=== PATIENT | female | born 1945 | race Hispanic/Latino ===

== ENCOUNTER → 2017-07-30 | Day surgery (SDC) | payer OTHER ==
[~2017-07-30] MED LIST: FENTANYL CITRATE/PF 100MCG/2 ML INJ ONE; LIDOCAINE HCL 2% LOCAL INJ 5 ML SDV VIAL INJ ONE; MIDAZOLAM HCL 2 MG/2 ML VIAL ONE; NEXIUM40 MG PO; PROPOFOL IV EMULSION 10 MG/ML 50 ML VIAL ONE
--- OUTSIDE RECORDS SUMMARY | 2017-07-30 06:26 | XMS REPORT ---
Author Organization Unknown Address [address] [place] [address] Phone [phone] Care Team Providers Care Grading Clerk Name Role Phone ZANDRA PAUL MD 124 [phone] Allergies Code Code System Name Reaction Severity Status Onset 97695 RxNorm Gabapentin Dizziness Active 17635 RxNorm Tramadol Hallucinations Active Medications Name Status Start Date Stop Date esomeprazole magnesium 40 mg capsule,delayed release Active Not available ferrous sulfate 325 mg (65 mg iron) tablet Take 1 tablet every day by oral route as directed for 90 days. Active Not available gabapentin 100 mg capsule Take 3 capsules every day by oral route as directed for 90 days. Completed 05/22/2016 gabapentin 300 mg capsule Take 1 capsule 3 times a day by oral route for 90 days. Completed 2017 lisinopril 20 mg-hydrochlorothiazide 25 mg tablet Active Not available meloxicam 15 mg tablet Take 1 tablet every day by oral route as needed for 30 days. Active Not available methylprednisolone 4 mg tablets in a dose pack Completed 05/17/2017 naproxen 500 mg tablet Completed 05/17/2017 tramadol 50 mg tablet Completed 05/03/2017 Problems Name Status Onset Date Source Hypertensive Disorder Active 05/08/2016 Gastroesophageal Reflux Disease Active 05/08/2016 Lumbar Spondylosis with Myelopathy Active 05/08/2016 History of Malignant Neoplasm of Colon Active 05/08/2016 History of Malignant Neoplasm of Cervix Active 05/08/2016 Mild Recurrent Major Depression Active 05/12/2016 Hereditary and Idiopathic Peripheral Neuropathy Active 05/12/2016 History of Total Knee Arthroplasty Active 05/12/2016 Pain in Right Knee Active 05/12/2016 Procedures Date Name Performed by 04/01/2012 Knee Surgery Notes: Right Information not available 10/30/2008 Knee Surgery Notes: Right Information not available 07/30/2008 Knee Arthroscopy/surgery Notes: Left Information not available 05/30/2008 Knee Arthroscopy/surgery Notes: RT Information not available 04/01/2003 Cancer Surgery Information not available 04/01/1993 Cancer Surgery Information not available 05/08/2016 Electrocardiogram [facility] [address] [facility] [address] [place] [id number] (Work Place) 05/08/2016 MAMMO, Screening, Bilateral [facility]) [address] [place] [address] (Work Place) 05/08/2016 Bone Density [facility]) [address] [place] [address] (Work Place) 03/04/2017 MAMMO, Screening, Bilateral [facility]) [address] [place] [address] (Work Place) 04/26/2017 Bone Density [facility]) [address] [place] [address] (Work Place) 05/03/2017 MAMMO, Screening, Digital, Bilateral [facility]) [address] [place] [address] (Work Place) 05/03/2017 Bone Density [facility]) [address] [place] [address] (Work Place) Notes: CERVICAL Ca - treated with LEEP/LOOP and radiation therpay COLON Ca - treated with Chemotherapy (last colonsocopy 2012) Lab Results Date Name Specimen Result Interpretation Description Value Range Status Address 05/03/2017 CMP, Serum or Plasma High Glucose 115 mg/dL 65-99 mg/ dL Final [facility]: [address] Normal Urea Nitrogen (BUN) 18 mg/dL 7-25 mg/dL Final [facility]: [address] High Creatinine 0.95 mg/dL 0.60-0.93 mg/dL Final [facility]: [address] Low eGFR Non-afr. Afghan 59 mL/min/1.73m2 > or=60 mL/min/ 1.73m2 Final [facility]: [address] Normal eGFR 69 mL/min/1.73m2 > or=60 mL/min/ 1.73m2 Final [facility]: [address] [place] [address] Normal BUN/creatinine Ratio 19 (calc) 6-22 (calc) Final [facility]: [address] [facility] Sodium 140 mmol/L 135-146 mmol/L Final [facility]: [address] Normal Potassium 4.8 mmol/L 3.5-5.3 mmol/L Final [facility]: [address] [facility] Normal Chloride 100 mmol/L 98-110 mmol/L Final [facility]: [address] Normal Carbon Dioxide 28 mmol/L 20-31 mmol/L Final [facility]: [address] Normal Calcium 9.8 mg/dL 8.6-10.4 mg/dL Final [facility]: [address] Normal Protein, Total 8.1 g/dL 6.1-8.1 g/dL Final [facility]: [address] Normal Albumin 3.9 g/dL 3.6-5.1 g/dL Final [facility]: [address] High Globulin 4.2 g/dL (calc) 1.9-3.7 g/dL (calc) Final [facility]: [address] Low Albumin/globulin Ratio 0.9 (calc) 1.0-2.5 (calc) Final [facility]: [address] Normal Bilirubin, Total 0.5 mg/dL 0.2-1.2 mg/dL Final [facility]: [address] [place] [address] Normal Alkaline Phosphatase 85 U/L 33-130 U/L Final [facility]: [address] Normal Ast 17 U/L 10-35 U/L Final [facility]: [address] Normal Alt 10 U/L 6-29 U/L Final [facility]: [address] [facility] 05/03/2017 Lipid Panel, Serum Normal Cholesterol, Total 145 mg/dL <200 mg/dL Final [facility]: [address] Low HDL Cholesterol 34 mg/dL >50 mg/dL Final [facility]: [address] [place] Normal Triglycerides 127 mg/dL <150 mg/dL Final [facility]: [address] [place] Normal LDL-cholesterol 89 mg/dL (calc) Final [facility]: [address] [place] Normal Chol/hdlc Ratio 4.3 (calc) <5.0 (calc) Final [facility]: [address] [place] Normal Non HDL Cholesterol 111 mg/dL (calc) <130 mg/dL (calc) Final [facility]: [address] [facility] 05/03/2017 TSH, Serum or Plasma Normal Tsh 2.37 mIU/L 0.40-4.50 mIU/L Final [facility]: [address] [facility] 05/03/2017 CBC W/ Auto Diff Normal White Blood Cell Count 8.4 thousand/uL 3.8-10.8 thousand/uL Final [facility]: [address] [place] [address] Normal Red Blood Cell Count 4.07 million/uL 3.80-5.10 million/ uL Final [facility]: [address] [place] Low Hemoglobin 10.3 g/dL 11.7-15.5 g/dL Final [facility]: [address] [place] Low Hematocrit 32.5 % 35.0-45.0 % Final [facility]: [address] [place] Low Mcv 79.9 fL 80.0-100.0 fL Final [facility]: [address] [facility] Low Mch 25.3 pg 27.0-33.0 pg Final [facility]: [address] [place] Low Mchc 31.7 g/dL 32.0-36.0 g/dL Final [facility]: [address] [place] High Rdw 15.4 % 11.0-15.0 % Final [facility]: [address] [place] High Platelet Count 417 thousand/uL 140-400 thousand/uL Final [facility]: [address] [facility] Normal Mpv 11.4 fL 7.5-12.5 fL Final [facility]: [address] Castillo, Jose M Normal Absolute Neutrophils 6544 cells/uL 7013-6494 cells/uL Final [facility]: [address] Cast[address], [place] Normal Absolute Lymphocytes 1243 cells/uL 850-3900 cells/uL Final [facility]: [address] Castillo, [place] Normal Absolute Monocytes 454 cells/uL 200-950 cells/uL Final [facility]: [address]illo, [place] Normal Absolute Eosinophils 92 cells/uL 15-500 cells/uL Final [facility]: [address]illo, [place] Normal Absolute Basophils 67 cells/uL 0-200 cells/uL Final [facility]: [address], [place] Normal Neutrophils 77.9 % Final [facility]: [address], [place] Normal Lymphocytes 14.8 % Final [facility]: [address], [place] Normal Monocytes 5.4 % Final [facility]: [address], [place] Normal Eosinophils 1.1 % Final [facility]: [address], [place] Normal Basophils 0.8 % Final [facility]: [address], [place] 05/09/2016 Lipid Panel, Serum Normal Cholesterol, Total 145 mg/dL 125-200 mg/dL Final [facility]: [address] [facility], [place] Low HDL Cholesterol 33 mg/dL > or=46 mg/dL Final [facility]: [address] [facility] [place] Normal Triglycerides 125 mg/dL <150 mg/dL Final [facility]: [address] [facility], [place] Normal LDL-cholesterol 87 mg/dL (calc) <130 mg/dL (calc) Final [facility]: [address] [facility], [place] Normal Chol/hdlc Ratio 4.4 (calc) < or=5.0 (calc) Final [facility]: [address] [facility], [place] Normal Non HDL Cholesterol 112 mg/dL (calc) Final [facility]: [address] [place] bust[place]os 05/09/2016 CMP, Serum or Plasma Normal Glucose 89 mg/dL 65-99 mg/ dL Final [facility]: [address] [facility], [place] Normal Urea Nitrogen (BUN) 21 mg/dL 7-25 mg/dL Final [facility]: [address] [facility], [place] High Creatinine 1.10 mg/dL 0.60-0.93 mg/dL Final [facility]: [address] [facility] [place] Low eGFR Non-afr. Afghan 50 mL/min/1.73m2 > or=60 mL/min/ 1.73m2 Final [facility]: [address] [facility], [place] Low eGFR 58 mL/min/1.73m2 > or=60 mL/min/ 1.73m2 Final [facility]: [address] [facility], [place] Normal BUN/creatinine Ratio 19 (calc) 6-22 (calc) Final [facility]: [address] [facility], [place] Normal Sodium 139 mmol/L 135-146 mmol/L Final [facility]: [address] [facility], [place] Normal Potassium 4.1 mmol/L 3.5-5.3 mmol/L Final [facility]: [address] [facility], [place] Normal Chloride 99 mmol/L 98-110 mmol/L Final [facility]: [address] [facility], [place] Normal Carbon Dioxide 28 mmol/L 20-31 mmol/L [facility]: [address] [facility], [place] Normal Calcium 9.5 mg/dL 8.6-10.4 mg/dL Final [facility]: [address] [facility], [place] Normal Protein, Total 7.8 g/dL 6.1-8.1 g/dL [facility]: [address] [facility], [place] Normal Albumin 3.9 g/dL 3.6-5.1 g/dL Final [facility]: [address] [facility], [place] High Globulin 3.9 g/dL (calc) 1.9-3.7 g/dL (calc) [facility]: [address] [facility], [place] Normal Albumin/globulin Ratio 1.0 (calc) 1.0-2.5 (calc) Final [facility]: [address], [place] Normal Bilirubin, Total 0.7 mg/dL 0.2-1.2 mg/dL Final [facility]: [address], [place] Normal Alkaline Phosphatase 85 U/L 33-130 U/L Final [facility]: [address], [place] Normal Ast 17 U/L 10-35 U/L Final [facility]: [address] [facility], [place] Normal Alt 7 U/L 6-29 U/L Final [facility]: [address], [place] 05/09/2016 CBC W/ Manual Diff Normal White Blood Cell Count 8.9 thousand/uL 3.8-10.8 thousand/uL Final [facility]: [address] [facility], [place] Normal Red Blood Cell Count 3.89 million/uL 3.80-5.10 million/ uL Final [facility]: [address] [facility], [place] Low Hemoglobin 10.7 g/dL 11.7-15.5 g/dL Final [facility]: [address] [facility] [place] Low Hematocrit 32.9 % 35.0-45.0 % Final [facility]: 70 [facility], [place] Normal Mcv 84.6 fL 80.0-100.0 fL Final [facility]: 70 [facility], [place] Normal Mch 27.5 pg 27.0-33.0 pg Final [facility]: [address] [facility], [place] Normal Mchc 32.5 g/dL 32.0-36.0 g/dL Final [facility]: [address] [facility], [place] High Rdw 17.2 % 11.0-15.0 % Final [facility]: [address], [place] Normal Platelet Count 284 thousand/uL 140-400 thousand/uL Final [facility]: [address], [place] Normal Mpv 9.7 fL 7.5-12.5 fL Final [facility]: [address], [place] Normal Absolute Neutrophils 4717 cells/uL 7684-8468 cells/uL Final [facility]: [address], [place] Normal Absolute Band Neutrophils 534 cells/uL 0-750 cells/uL Final [facility]: [address], [place] Normal Absolute Lymphocytes 3204 cells/uL 850-3900 cells/uL Final [facility]: [address], [place] Normal Absolute Monocytes 267 cells/uL 200-950 cells/uL Final [facility]: [address], [place] Normal Absolute Eosinophils 178 cells/uL 15-500 cells/uL Final [facility]: [address], [place] Normal Absolute Basophils 18 cells/uL 0-200 cells/uL Final [facility]: [address], [place] Normal Neutrophils 53 % Final [facility]: [address], [place] Normal Band Neutrophils 6 % Final [facility]: [address], [place] Normal Lymphocytes 36 % Final [facility]: [facility] [address], [place] Normal Monocytes 3 % Final [facility] : [facility] [address], [place] Normal Eosinophils 2 % Final [facility]: [address] [place], [place] [address]t vd, [place] Comment(s) Final [facility]: [address] [place] [address], [place] 05/09/2016 T4, Total, Serum Normal T4 (Thyroxine), Total 8.6 mcg/ dL 4.5-12.0 mcg/dL Final [facility]: [address] [facility], [place] 05/09/2016 TSH, Serum or Plasma Normal Tsh 2.82 mIU/L 0.40-4.50 mIU/L Final [facility]: [address] [place] [address], [place] Electrocardiogram Rate & Rhythm [facility]: [address] [facility] [address], [place] Qrs [facility]: [address] [address], [place] Interval [facility]: [address] [address], [place] QRS Duration [facility]: [address] [address], [place] QT Interval [facility]: [address] [facility] [address], [place] Past Encounters 05/17/2017 Pain in Right Knee; Anemia Heron Jeronimo MD: [address] [address], [place] [address], Ph. 05/03/2017 Adult Health Examination; Pain in Right Knee; Hypertensive Disorder; Gastroesophageal Reflux Disease; Advance Directive Discussed with Patient; Depression Screening; Body Mass Index 20-24 - Normal; History of Malignant Neoplasm of Colon; Screening Mammography; Postmenopausal State Heron Jeronimo MD: [address] [facility], [address] [address], Ph. 04/15/2017 Influenza Vaccination Dwayne Leigh MD: [address] [facility], [facility] [address] [address], Ph. 05/22/2016 Hypertensive Disorder; History of Total Knee Arthroplasty; Hereditary and Idiopathic Peripheral Neuropathy; Gastroesophageal Reflux Disease; Pain in Right Knee Dwayne Leigh MD: [address] [facility], [facility] [address] [address], Ph. 05/08/2016 Adult Health Examination; Hypertensive Disorder; Hereditary and Idiopathic Peripheral Neuropathy; Mild Recurrent Major Depression; Gastroesophageal Reflux Disease; Pain in Right Knee; Lumbar Spondylosis with Myelopathy; History of Total Knee Arthroplasty; Body Mass Index 20-24 - Normal; Advance Directive Discussed with Patient; Screening for Malignant Neoplasm of Breast; Screening for Malignant Neoplasm of Colon; Screening for Osteoporosis; History of Malignant Neoplasm of Colon; Immunization Dwayne Leigh MD: [address] [place] [address], [address] [address], Ph. Social History Smoking Status Never Smoker Vaccine List Vaccine Type influenza, high dose seasonal 04/15/20170.5 mL influenza, injectable, quadrivalent 05/08/20160.5 mL pneumococcal polysaccharide PPV23 05/08/20160.5 mL zoster 04/01/2009 Plan of Care Patient Instructions Screening Recommendations 1. Vaccines Pneumococcal: discussed today and information sent with patient in their [employer] health folder Influenza: discussed today and information sent with patient in their [employer] health folder Shingles: discussed today and information sent with patient in their [employer] health folder Tetanus: discussed today and information sent with patient in their [employer] health folder 2. Mammography Screening: discussed today and information sent with patient in their [employer] health folder 3. Colorectal cancer Screening Colonoscopy: discussed today and information sent with patient in their [employer] health folder Fecal Occult Blood: discussed today and information sent with patient in their [employer] health folder 4. Bone Mass Measurement: discussed today 5. Pap test / Pelvic Exam Screening: discussed today 6. Eye Exam Screening: discussed today 7. Cholesterol Screening: discussed today 8. Diabetes Screening: discussed today It was good to see you in the office today for your Medicare Annual Wellness Visit. You have been provided some information on healthy nutrition, including a diet rich in fruits and vegetables, minimizing simple carbohydrates, salt, and saturated fats. I want to encourage regular cardiovascular exercise such as walking at least 30 minutes daily, 5 times per week. Please remember to schedule any preventive health measures that we talked about today. You have also been provided education on fall prevention and community- based lifestyle interventions to help reduce health risks and promote healthy living in your [employer] folder. It was good to see you in the office today for your Medicare Annual Wellness Visit. You have been provided some information on healthy nutrition, including a diet rich in fruits and vegetables, minimizing simple carbohydrates, salt, and saturated fats. I want to encourage regular cardiovascular exercise such as walking at least 30 minutes daily, 5 times per week. Please remember to schedule any preventive health measures that we talked about today. You have also been provided education on fall prevention and community- based lifestyle interventions to help reduce health risks and promote healthy living in your [employer] folder. Reminders Provider Appointments None recorded. Lab None recorded. Referral None recorded. Procedures None recorded. Surgeries None recorded. Imaging None recorded. Vitals 05/17/2017 01:30PM Est Patient Height Weight Blood Pressure 5 ft 4 in 124/83 mm[Hg] 05/03/2017 11:30AM AWV Height Weight BMI Blood Pressure 5 ft 4 in 140 lbs 24 kg/m2 149/76 mm[Hg] 05/22/2016 10:30AM Est Patient Height Weight BMI Blood Pressure 5 ft 4 in 140 lbs 24 kg/m2 142/82 mm[Hg] 05/08/2016 11:30AM TRANSITION MGR RN/EST CPX Height Weight BMI Blood Pressure 5 ft 4 in 140 lbs 24 kg/m2 137/75 mm[Hg]
[2017-07-30 07:21] LABS: BASOPHILS # (AUTO) 0.1 (0.0-0.1); BASOPHILS % 0.5 % (0.0-1.0); EOSINOPHILS % 0.3 % (0.0-6.0); HEMOGLOBIN 11.7 g/dL (12.0-16.0); LYMPHOCYTES # (AUTO) 1.1 (1.0-3.2); LYMPHOCYTES % 9.7 % (18.0-39.1); MEAN CORPUSCULAR HEMOGLOBIN 26.7 pg (28-32); MEAN CORPUSCULAR HGB CONC 31.6 g/dL (31-35); MEAN CORPUSCULAR VOLUME 84.3 fL (81-99); MONOCYTES # (AUTO) 0.5 (0.2-0.8); MONOCYTES % 4.3 % (4.4-11.3); NEUTROPHILS # (AUTO) 9.6 (2.1-6.9); NEUTROPHILS % 84.8 % (38.7-80.0); PLATELET COUNT 388 x10e3/uL (140-360); RED BLOOD COUNT 4.39 x10e6/uL (3.6-5.1); RED CELL DISTRIBUTION WIDTH 16.9 % (11.7-14.4)
== END | disposition home or self-care (01) ==
LOC: OR 06:23
PROVIDERS: ATTEND Internal Medicine Gastroenterology
DX: Z12.11 Encounter for screening for malignant neoplasm of colon (principal); Z85.038 Personal history of other malignant neoplasm of large intestine; D12.8 Benign neoplasm of rectum; K29.50 Unspecified chronic gastritis without bleeding; K62.7 Radiation proctitis; K21.9 Gastro-esophageal reflux disease without esophagitis; K56.609 Unspecified intestinal obstruction, unspecified as to partial versus complete obstruction; K44.9 Diaphragmatic hernia without obstruction or gangrene; R19.5 Other fecal abnormalities; D64.9 Anemia, unspecified; I10 Essential (primary) hypertension; Z01.810 Encounter for preprocedural cardiovascular examination; Z68.33 Body mass index [BMI] 33.0-33.9, adult
CPT/HCPCS: 36415; 43239; 45380; 85025; 93005; J2001; J2250; 43235; 45378